=== PATIENT | female | born 1970 | race Caucasian/White ===

== ENCOUNTER 2020-04-27 23:09 | Emergency (ER) | payer OTHER ==
[~2020-04-27] VITALS: Ht 157.5 cm; Wt 74.1 kg
[2020-04-27 23:19] VITALS: Ht 157.5 cm; Wt 74.1 kg
[2020-04-27 23:32] LABS: BASOPHILS 0.2 % (0-2); EOSINOPHILS 3.4 % (0-7); HEMATOCRIT 41.8 % (36.0-48.0); HEMOGLOBIN 13.4 g/dL (12-16); IMMATURE GRANULOCYTES 0.3 % (0-5); LYMPHOCYTES 41.1 % (15-50); MCH 30.9 pg (26.0-34.0); MCHC 32.1 g/dL (31.0-37.0); MCV 96.5 fL (80.0-100.0); MONOCYTES 4.4 % (2-11); NEUTROPHILS 50.6 % (40-80); PLATELET COUNT 313 10x3/uL (130-400); RBC 4.33 10x6/uL (4.00-5.40); RDW 14.5 % (11.5-14.5)
[2020-04-27 23:41] LABS: CALC OSMOLALITY 283 mosm/kg (275-300); CALCIUM 8.8 mg/dL (8.5-10.1); CARBON DIOXIDE 32.5 mmol/L (21.0-32.0); CHLORIDE - SERUM 102 mmol/L (98-107); CREATININE - SERUM 1.1 mg/dL (0.6-1.3); GLUCOSE 229 mg/dL (74-106); POTASSIUM - SERUM 3.9 mmol/L (3.5-5.1); SODIUM 139 mmol/L (136-145); UREA NITROGEN 10 mg/dL (7-18); eGFR NON AFRICAN AMERICAN 56 mL/min (90-120)
[2020-04-27 23:51] LABS: ALBUMIN 3.4 g/dL (3.4-5.0); ALKALINE PHOSPHATASE 75 U/L (30-120); ALT (SGPT) 17 U/L (10-68); AMYLASE - SERUM 25 U/L (25-115); BILIRUBIN - TOTAL 0.32 mg/dL (0.2-1.3); LIPASE 58 U/L (73-393); PROTEIN - SERUM 7.4 g/dL (6.4-8.2)
[2020-04-27 23:55] LABS: TROPONIN-I < 0.017 ng/mL (0.000-0.060)
[2020-04-27 23:58] LABS: BILIRUBIN NEGATIVE (NEGATIVE); KETONE NEGATIVE (NEGATIVE); NITRITE NEGATIVE (NEGATIVE); UROBILINOGEN NORMAL mg/dL (< 2)
[2020-04-28] MEDS ORDERED: CHRONULAC30 ML PO (00:59)
[2020-04-28 01:14] VITALS: BP 119/78
== END 2020-04-28 01:14 | disposition home or self-care (01) ==
LOC: D.ER 23:09
PROVIDERS: Family Medicine
DX: K59.00 Constipation, unspecified (principal); E11.9 Type 2 diabetes mellitus without complications; J44.9 Chronic obstructive pulmonary disease, unspecified; Z72.0 Tobacco use